=== PATIENT | female | born 1980 | race Caucasian/White ===

== ENCOUNTER 2021-08-13 08:17 | Emergency (ER) | payer OTHER ==
[~2021-08-13] VITALS: Ht 157.5 cm; Wt 104.1 kg
[2021-08-13] MEDS ORDERED: LEXA1TAB2 PO (08:27)
[2021-08-13] MEDS ORDERED: WELLTAB38 PO (08:27)
[2021-08-13] MEDS ORDERED: KETOROLAC 30 MG/ML 1ML VIAL IM ONE (09:30)
[2021-08-13 09:58] VITALS: BP 139/93
== END 2021-08-13 10:14 | disposition home or self-care (01) ==
LOC: M ED 08:17
DX: S50.02XA Contusion of left elbow, initial encounter (principal); W00.0XXA Fall on same level due to ice and snow, initial encounter; Y92.009 Unspecified place in unspecified non-institutional (private) residence as the place of occurrence of the external cause; Y93.9 Activity, unspecified; Y99.9 Unspecified external cause status
CPT/HCPCS: 73080; 73090; 99284; J1885